=== PATIENT | male | born 1975 | race Caucasian/White ===

== ENCOUNTER 2019-11-27 19:51 | Inpatient (IN) | payer BC ==
[~2019-11-27] VITALS: Ht 190.5 cm; Wt 208.2 kg
[2019-11-27] MEDS ORDERED: ALBUTEROL SULF 0.083% NEB SOLN 3 ML NEB NEB STA (19:55)
[2019-11-27] MEDS ORDERED: ACETAMINOPHEN 1000 MG/100 ML IV STA (19:59)
[2019-11-27 20:34] LABS: BASOPHILS % 0.2 % (0.0-1.0); EOSINOPHILS # (AUTO) 0.1 (0.0-0.4); EOSINOPHILS % 0.3 % (0.0-6.0); HEMATOCRIT 41.6 % (38.2-49.6); HEMOGLOBIN 14.1 g/dL (14.0-18.0); LYMPHOCYTES # (AUTO) 1.3 (1.0-3.2); LYMPHOCYTES % 8.2 % (18.0-39.1); MEAN CORPUSCULAR HEMOGLOBIN 30.5 pg (28-32); MEAN CORPUSCULAR HGB CONC 33.9 g/dL (31-35); MONOCYTES # (AUTO) 0.9 (0.2-0.8); NEUTROPHILS # (AUTO) 12.8 (2.1-6.9); NEUTROPHILS % 84.6 % (38.7-80.0); PLATELET COUNT 231 x10e3/uL (140-360); RED BLOOD COUNT 4.62 x10e6/uL (4.3-5.7); RED CELL DISTRIBUTION WIDTH 15.8 % (11.7-14.4)
[2019-11-27] MEDS ORDERED: ONDANSETRON HCL INJ 2MG/ML 2ML 2 MG/ML VIAL IV STA (20:35)
[2019-11-27 20:41] LABS: INR 1.07; PROTHROMBIN TIME 14.2 seconds (11.9-14.5)
[2019-11-27] MEDS ORDERED: ACETAMINOPHEN 325 MG TAB PO ONE (20:45)
[2019-11-27] MEDS ORDERED: ACETAMINOPHEN 325 MG TAB ONE (20:46)
[2019-11-27] MEDS: PIPER-TAZ 3.375 GM 50 ML IV SCH (21:04)
[2019-11-27] MEDS ORDERED: VANCOMYCIN 1GM/NS 250 ML 250 ML IV STA (21:04)
[2019-11-27 21:19] LABS: ALANINE AMINOTRANSFERASE 29 IU/L (0-55); ALBUMIN 3.5 g/dL (3.5-5.0); ALBUMIN/GLOBULIN RATIO 1.2 (0.8-2.0); ALKALINE PHOSPHATASE 96 IU/L (40-150); ANION GAP 16.7 mmol/L (8-16); BLOOD UREA NITROGEN 19 mg/dL (7-26); BUN/CREATININE RATIO 17 (6-25); CALCIUM 8.7 mg/dL (8.4-10.2); CARBON DIOXIDE 22 mmol/L (22-29); CHLORIDE 103 mmol/L (98-107); CREATINE KINASE 86 IU/L (30-200); CREATININE, SERUM 1.13 mg/dL (0.72-1.25); EST GLOMERULAR FILTRATION RATE > 60 ML/MIN (60-); GLUCOSE 106 mg/dL (74-118); POTASSIUM 3.7 mmol/L (3.5-5.1); SODIUM 138 mmol/L (136-145)
--- NOTE | 2019-11-27 21:25 | Diagnostic Imaging Report ---
EXAMINATION: CHEST SINGLE (PORTABLE) COMPARISON: None INDICATION: Fever, cough, nausea vomiting ^ERMD ORDER ^[id number] ^2039 ^Y DISCUSSION: Frontal view of the chest obtained at 8 hours. HEART AND MEDIASTINUM: The cardiomediastinal silhouette is unremarkable. LINES: None. LUNGS: Airspace opacities in the right mid and lower lung zones. Left lung is clear. PLEURA: No pleural effusion or pneumothorax. BONES AND SOFT TISSUES: No focal osseous lesion. The soft tissues are normal. IMPRESSION: Airspace opacity in the right lung is suggestive of pneumonia. Signed by: Dr. Eileen Barreto MD on 11/27/2019 9:23 PM
--- OUTSIDE RECORDS SUMMARY | 2019-11-27 22:11 | XMS REPORT ---
Author [facility] Address Unknown Phone Unavailable Care Team Providers Care [employer] Inspector Name Role Phone ANGELICA HAILEY Unavailable Unavailable Problems This patient has no known problems. Allergies, Adverse Reactions, Alerts This patient has no known allergies or adverse reactions. Medications This patient has no known medications. Results Test Description Test Time Test Comments Text Results Atomic Results Result Comments CHEST SINGLE (PORTABLE) 2019-11-27 21:22:00 [place] [address] Patient Name: MARY CARRINGTON MR #: [id number] : 1975 Age/Sex: 44/M Req #: [id number] Adm Physician: Ordered by: HAILEY DOMINGUEZ DO Report #: [id number] Location: ER Room/Bed: Procedure: [id number] DX/CHEST SINGLE (PORTABLE) Exam Date: 11/27/19 Exam Time: 2039 REPORT STATUS: Signed EXAMINATION: CHEST SINGLE (PORTABLE) COMP ARISON: None INDICATION: Fever, cough, nausea vomiting ERMD ORDER [id number] Y DISCUSSION: Frontal view of the chest obtained at 2038 hours. HEART AND MEDIASTINUM: The cardiomediastinal silhouette is unremarkable. LINES: None. LUNGS: Airspace opacities in the right mid and lower lung zones. Left lung is clear. PLEURA: No pleural effusion or pneumothorax. BONES AND SOFT TISSUES: No focal osseous lesion. The soft tissues are normal. IMPRESSION: Airspace opacity in the right lung is suggestive of pneumonia. Signed by: Dr. Monica Barreto MD on 11/27/2019 9:23 PM Dictated By: MONICA BARRETO MD 22 Transcribed By: KEVIN on 11/27/192122 COPY TO: HAILEY DOMINGUEZ DO
[2019-11-27] MEDS ORDERED: VANCOMYCIN HCL 1GM/NS 250 ML BAG IV SCH (22:15)
[2019-11-27] MEDS ORDERED: AZITHROMYCIN 500MG/SOD CHL 0.9% 250ML BAG IV SCH (22:15)
[2019-11-27 23:14] VITALS: BP 137/78
[2019-11-27 23:47] VITALS: BP 137/78
[2019-11-28] VITALS (19 sets, daily range): BP systolic 126–160; BP diastolic 60–98
[2019-11-28 05:27] LABS: BASOPHILS % 0.2 % (0.0-1.0); EOSINOPHILS # (AUTO) 0.1 (0.0-0.4); EOSINOPHILS % 0.5 % (0.0-6.0); HEMATOCRIT 41.2 % (38.2-49.6); HEMOGLOBIN 13.5 g/dL (14.0-18.0); LYMPHOCYTES # (AUTO) 1.5 (1.0-3.2); LYMPHOCYTES % 9.1 % (18.0-39.1); MEAN CORPUSCULAR HGB CONC 32.8 g/dL (31-35); MEAN CORPUSCULAR VOLUME 91.6 fL (81-99); NEUTROPHILS # (AUTO) 13.6 (2.1-6.9); NEUTROPHILS % 81.7 % (38.7-80.0); PLATELET COUNT 207 x10e3/uL (140-360); RED CELL DISTRIBUTION WIDTH 15.8 % (11.7-14.4)
[2019-11-28 06:08] LABS: ANION GAP 16.7 mmol/L (8-16); BLOOD UREA NITROGEN 19 mg/dL (7-26); BUN/CREATININE RATIO 16 (6-25); CALCIUM 8.7 mg/dL (8.4-10.2); CARBON DIOXIDE 24 mmol/L (22-29); CHLORIDE 102 mmol/L (98-107); CREATININE, SERUM 1.21 mg/dL (0.72-1.25); EST GLOMERULAR FILTRATION RATE > 60 ML/MIN (60-); GLUCOSE 113 mg/dL (74-118); POTASSIUM 3.7 mmol/L (3.5-5.1); SODIUM 139 mmol/L (136-145)
[2019-11-28] MEDS ORDERED: ONDANSETRON HCL INJ 2MG/ML 2ML 2 MG/ML VIAL IV STA (06:12)
[2019-11-28] MEDS ORDERED: ACETAMINOPHEN 325 MG TAB PO ONE (06:15)
[2019-11-28 06:32] LABS: CREATINE KINASE 62 IU/L (30-200)
[2019-11-28] MEDS: PIPER-TAZ 3.375 GM 50 ML IV SCH ×4 (06:33→23:45)
[2019-11-28] MEDS ORDERED: PROMETHAZINE 12.5MG/ NACL 0.9% 12.5 MG/50 ML BAG IV PRN (07:45)
[2019-11-28] MEDS ORDERED: SODIUM CHLORIDE 0.9% 250ML 250 ML ONE (07:57)
[2019-11-28] MEDS: ACETAMIN/BUTALBITAL/CAFFEINE TAB PO PRN ×3 (08:00→23:45)
[2019-11-28] MEDS ORDERED: ZOLPIDEM TARTRATE 5 MG TAB PO PRN (10:30)
[2019-11-28] MEDS ORDERED: CLONIDINE HCL 0.1 MG TAB PO PRN (10:30)
[2019-11-28] MEDS ORDERED: AZITHROMYCIN 500MG/NS 250 ML 250 ML IV SCH (10:30)
[2019-11-28] MEDS ORDERED: ALBUTEROL/IPRATROPIUM 3 ML NEB NEB PRN (10:45)
[2019-11-28] MEDS: METHYLPREDNISOLONE SOD SUCC 40 MG/ML VIAL 1ML IV SCH ×2 (11:03→23:45)
[2019-11-28] MEDS: SODIUM CHLORIDE 0.9% 1000ML 1,000 ML IV SCH ×2 (11:03→19:45)
--- NOTE | 2019-11-28 11:27 | Consultation ---
DATE OF CONSULTATION: 11/28/2019 Pulmonary Critical Care Consultation. CHIEF COMPLAINT: Fever and worsening dyspnea. HISTORY OF PRESENT ILLNESS: The patient is a 44-year-old man. He has a history of obstructive sleep apnea and asthma. He was previously on Pulmicort and rescue inhalers several years ago, but has not required them for three or four years. Over the past five days, he has noticed increased fever and congestion. He complains of worsening dyspnea and some difficulty breathing. He has been using his BiPAP more. He reports some headache. PAST SURGICAL HISTORY: Status post umbilical hernia repair. PAST MEDICAL HISTORY: 1. Asthma. 2. COPD. 3. Hypertension. SOCIAL HISTORY: The patient is not a smoker. He is not an active drinker. He has no recent travel. FAMILY HISTORY: Family history is noncontributory. REVIEW OF SYSTEMS: The patient is afebrile, T-max is 99.9. The patient reports some headache. He does have some wheezing and some cough. He notes some dyspnea. He is not having any chest pain. He denies any abdominal pain. There is no nausea or vomiting. He has no leg edema. PHYSICAL EXAMINATION: VITAL SIGNS: The patient is afebrile. The blood pressure is 153/96 and the patient is on BiPAP. HEENT: Shows no facial swelling or erythema. LYMPHATIC: Shows no submandibular, cervical, or supraclavicular adenopathy. CARDIAC: Reveals regular rate and rhythm with normal S1, S2. LUNGS: Auscultation of lungs reveals a prolonged expiratory phase bilaterally. There is some wheezing. ABDOMEN: Soft and nontender. There is no rebound or guarding. EXTREMITIES: Show no leg edema or calf tenderness. There is no cyanosis or clubbing. SKIN: Shows no rashes. NEUROLOGICAL: Shows no focal abnormalities. LABORATORY DATA: White blood cell count is 16.7 and hemoglobin is 13.5. The platelet count is 207. BUN to creatinine ratio is 19 to 1.21. Influenza is negative. Chest x-ray shows airspace opacity in the right lung, suggestive of pneumonia. IMPRESSION: 1. Community-acquired pneumonia with sepsis, present on admission. 2. Asthma with acute exacerbation. 3. Obstructive sleep apnea. 4. Headache. 5. Hypertension. PLAN: 1. The patient will receive IV fluids. 2. Zithromax and Rocephin for community-acquired pneumonia. 3. Solu-Medrol twice daily. 4. Bronchodilators as needed. 5. CT scan of head and CT scan of chest. MD AILYN Blackman/JACKIE /[id number]
[2019-11-28] MEDS ORDERED: ACETAMINOPHEN 325 MG TAB PO PRN (12:00)
[2019-11-28] MEDS ORDERED: ONDANSETRON HCL INJ 2MG/ML 2ML 2 MG/ML VIAL IV PRN (12:00)
--- NOTE | 2019-11-28 12:22 | Diagnostic Imaging Report ---
EXAM: CT Chest WITHOUT contrast INDICATION: ^Headache ^[id number] ^1140 COMPARISON: None TECHNIQUE: Chest was scanned utilizing a multidetector helical scanner from the lung apex through the level of the adrenal glands without administration of IV contrast. Absence of intravenous contrast decreases sensitivity for detection of lymphadenopathy and vascular pathology. Coronal and sagittal reformations were obtained. Routine protocol was performed. IV CONTRAST: None COMPLICATIONS: None RADIATION DOSE: Total DLP: 979.32 mGy*cm Estimated effective dose: (DLP x 0.014 x size factor) mSv CTDIvol has been reviewed. It is below the limits set by the Radiation Protocol Committee (RPC). FINDINGS: LINES/ TUBES: None. LUNGS AND AIRWAYS: Diffuse consolidation is seen involving the right middle and right lower lobe which could be due to aspiration or pneumonia. Airways are normal. PLEURA: The pleural spaces are clear. HEART AND MEDIASTINUM: The thyroid gland is normal. No mediastinal, hilar or axillary lymphadenopathy. The heart is normal in size.. There is no pericardial effusion. UPPER ABDOMEN: Unremarkable. BONES: The visualized bony thorax is within normal limits. SOFT TISSUES: Unremarkable. IMPRESSION: Diffuse consolidation in the right middle and right lower lobe likely due to aspiration or pneumonia. Signed by: Guzman Fraga MD on 11/28/2019 12:20 PM
--- NOTE | 2019-11-28 12:42 | Diagnostic Imaging Report ---
CT BRAIN WO HISTORY: Headache COMPARISON: None. TECHNIQUE: Noncontrast axial scans were obtained from skull base to the vertex. Coronal and sagittal reconstructions obtained from the axial data. One or more of the following dose reduction techniques were used: Automated exposure control, adjustment of the mA and/or kV according to patient size, and/or utilization of iterative reconstruction technique. Beam hardening artifacts obscure some details. DISCUSSION: Scalp/Skull: Unremarkable. Brain sulci: Appropriate for patient's age. Ventricles: Normal in size and configuration. No hydrocephalus. Extra-axial spaces: No masses or fluid collections. Minimal carotid siphon calcifications. Parenchyma: No abnormal densities. No mass, hemorrhage, or large vascular territory acute infarct. Dural sinuses: No abnormal densities. Sellar/Suprasellar region: Intact. Skull base: Intact. Incidental findings: Scattered diffuse bilateral paranasal sinus opacification is nonspecific. IMPRESSION: 1. No acute intracranial abnormalities. 2. Nonspecific scattered diffuse bilateral paranasal sinus opacification. Signed by: Dr. Emmanuel Fisher M.D. on 11/28/2019 12:40 PM
[2019-11-28] MEDS: GUAIFENESIN 600 MG TAB PO SCH ×3 (12:58→23:45)
[2019-11-28] MEDS: ALBUTEROL/IPRATROPIUM 3 ML NEB NEB SCH ×2 (13:30→19:14)
[2019-11-28 15:47] LABS: CLARITY,URINE HAZY (CLEAR); COLOR,URINE YELLOW (YELLOW)
[2019-11-28 15:48] LABS: BACTERIA,URINE FEW /HPF; BILIRUBIN,URINE NEGATIVE (NEGATIVE); EPITHELIAL CELLS,URINE FEW /LPF; KETONES,URINE 1+ (NEGATIVE); LEUKOCYTE ESTERASE ,URINE NEGATIVE (NEGATIVE); NITRITE,URINE NEGATIVE (NEGATIVE); PROTEIN,URINE DIPSTICK 1+ (NEGATIVE); RBC,URINE 0-5 /HPF (0-5); URINE UROBILINOGEN 4 mg/dL (0.2 - 1); WBC,URINE (MAN) 0-5 /HPF (0-5)
[2019-11-28 16:14] LABS: BAND NEUTROPHILS % (MANUAL) 17 %; LYMPHOCYTES % (MANUAL) 5 % (19-48); MONOCYTES % (MANUAL) 6 % (3.4-9.0); NEUTROPHILS % (MANUAL) 72 % (40-74); PLATELET ESTIMATE ADEQUATE; PLATELET MORPHOLOGY COMMENT NORMAL; RBC MORPHOLOGY COMMENT NORMAL
[2019-11-28] MEDS ORDERED: AZITHROMYCIN 500MG/SOD CHL 0.9% 250ML BAG IV SCH (22:15)
[2019-11-28] MEDS: AZITHROMYCIN 500MG/SOD CHL 0.9% 250ML BAG IV SCH (22:16)
[2019-11-29] VITALS (15 sets, daily range): BP systolic 109–148; BP diastolic 72–97
[2019-11-29] MEDS: ALBUTEROL/IPRATROPIUM 3 ML NEB NEB SCH ×4 (01:10→19:01)
[2019-11-29 05:28] LABS: BASOPHILS % 0.1 % (0.0-1.0); HEMOGLOBIN 12.6 g/dL (14.0-18.0); LYMPHOCYTES # (AUTO) 1.2 (1.0-3.2); LYMPHOCYTES % 7.4 % (18.0-39.1); MEAN CORPUSCULAR HEMOGLOBIN 30.3 pg (28-32); MEAN CORPUSCULAR HGB CONC 33.2 g/dL (31-35); MEAN CORPUSCULAR VOLUME 91.3 fL (81-99); MONOCYTES # (AUTO) 0.3 (0.2-0.8); MONOCYTES % 1.7 % (4.4-11.3); NEUTROPHILS # (AUTO) 13.6 (2.1-6.9); PLATELET COUNT 239 x10e3/uL (140-360); RED BLOOD COUNT 4.16 x10e6/uL (4.3-5.7); RED CELL DISTRIBUTION WIDTH 15.2 % (11.7-14.4)
[2019-11-29 05:52] LABS: ALANINE AMINOTRANSFERASE 28 IU/L (0-55); ALBUMIN/GLOBULIN RATIO 0.9 (0.8-2.0); ALKALINE PHOSPHATASE 93 IU/L (40-150); ANION GAP 14.4 mmol/L (8-16); BLOOD UREA NITROGEN 17 mg/dL (7-26); BUN/CREATININE RATIO 17 (6-25); CALCIUM 9.3 mg/dL (8.4-10.2); CARBON DIOXIDE 25 mmol/L (22-29); CHLORIDE 103 mmol/L (98-107); CREATININE, SERUM 0.98 mg/dL (0.72-1.25); EST GLOMERULAR FILTRATION RATE > 60 ML/MIN (60-); GLUCOSE 162 mg/dL (74-118); POTASSIUM 4.4 mmol/L (3.5-5.1); SODIUM 138 mmol/L (136-145)
[2019-11-29] MEDS: GUAIFENESIN 600 MG TAB PO SCH ×3 (06:00→17:27)
[2019-11-29] MEDS: PIPER-TAZ 3.375 GM 50 ML IV SCH ×3 (06:00→17:26)
--- NOTE | 2019-11-29 06:16 | Diagnostic Imaging Report ---
EXAMINATION: CHEST SINGLE (PORTABLE) COMPARISON: CT chest 11/28/2019, chest x-ray 11/27/2019 INDICATION: Shortness of breath, fever, pneumonia ^PNA ^Y DISCUSSION: Frontal view of the chest obtained at 0542 hours. HEART AND MEDIASTINUM: The heart is top normal in size LINES: None. LUNGS: Infiltrates in the lateral segment of the right middle lobe and portions of the lower lobe are similar. Left lung is clear. PLEURA: No pleural effusion or pneumothorax. BONES AND SOFT TISSUES: No focal osseous lesion. The soft tissues are normal. IMPRESSION: No significant change in infiltrates in the right lung. No new cardiopulmonary findings. Signed by: Dr. Eileen Barreto MD on 11/29/2019 6:14 AM
[2019-11-29] MEDS: METHYLPREDNISOLONE SOD SUCC 40 MG/ML VIAL 1ML IV SCH ×2 (11:57→22:24)
--- NOTE | 2019-11-29 13:43 | Progress Note ---
DATE: 11/29/2019 Pulmonary Critical Care Consultation HISTORY OF PRESENT ILLNESS: The patient received some IV fluids antibiotics yesterday. He feels better overall, but still has some cough. He is using BiPAP intermittently. PHYSICAL EXAMINATION: VITAL SIGNS: The patient is afebrile. The blood pressure is 142/87. HEENT: Shows no facial swelling or erythema. CARDIAC: Reveals regular rate and rhythm with normal S1 and S2. LUNGS: Auscultation of lungs reveals rhonchorous breath sounds bilaterally. There is no wheezing. ABDOMEN: Soft and nontender. There is no rebound or guarding. EXTREMITIES: Shows no leg edema or calf tenderness. There is no cyanosis or clubbing. LABORATORY DATA: The BUN to creatinine ratio is 17 to 0.98 and other electrolytes are within normal limits. The white blood cell count is 15.5 and hemoglobin is 12.6. The platelet count is 239. RADIOGRAPHIC DATA: CT scan shows diffuse consolidation in the right middle and right lower lobe. CT of the brain shows sinusitis. IMPRESSION: 1. Community-acquired pneumonia with sepsis, present on admission. 2. Acute sinusitis. 3. Obstructive sleep apnea. 4. Asthma with acute exacerbation. 5. Hypertension. PLAN: 1. Continue antibiotics. 2. Nasal sprays for sinusitis. 3. BiPAP at night and as needed during the day. Rito Hussein MD [facility]/MODL /[id number]
[2019-11-29] MEDS: FLUTICASONE PROPIONATE NASAL SPRAY NS SCH (16:24)
[2019-11-29] MEDS: OXYMETAZOLINE HCL 0.05% NAS 1 SPRAY BTL SCH (20:57)
[2019-11-29] MEDS: AZITHROMYCIN 500MG/SOD CHL 0.9% 250ML BAG IV SCH (21:33)
[2019-11-30] VITALS (8 sets, daily range): BP systolic 138–154; BP diastolic 75–97
[2019-11-30] MEDS: PIPER-TAZ 3.375 GM 50 ML IV SCH ×5 (00:16→23:37)
[2019-11-30] MEDS: GUAIFENESIN 600 MG TAB PO SCH ×5 (00:16→23:37)
[2019-11-30] MEDS: ALBUTEROL/IPRATROPIUM 3 ML NEB NEB SCH ×4 (00:30→19:00)
[2019-11-30 05:45] LABS: HEMOGLOBIN 12.6 g/dL (14.0-18.0); RED BLOOD COUNT 4.17 x10e6/uL (4.3-5.7)
[2019-11-30 05:46] LABS: MEAN CORPUSCULAR HEMOGLOBIN 30.2 pg (28-32); MEAN CORPUSCULAR HGB CONC 33.2 g/dL (31-35); MEAN CORPUSCULAR VOLUME 91.1 fL (81-99)
[2019-11-30 05:47] LABS: PLATELET COUNT 243 x10e3/uL (140-360); RED CELL DISTRIBUTION WIDTH 15.5 % (11.7-14.4)
[2019-11-30 05:48] LABS: BASOPHILS % 0.2 % (0.0-1.0); EOSINOPHILS % 0.4 % (0.0-6.0); LYMPHOCYTES % 11.7 % (18.0-39.1); MONOCYTES % 2.8 % (4.4-11.3)
[2019-11-30 05:59] LABS: ANION GAP 13.5 mmol/L (8-16); BLOOD UREA NITROGEN 17 mg/dL (7-26); BUN/CREATININE RATIO 18 (6-25); CALCIUM 9.3 mg/dL (8.4-10.2); CARBON DIOXIDE 22 mmol/L (22-29); CHLORIDE 105 mmol/L (98-107); CREATININE, SERUM 0.95 mg/dL (0.72-1.25); EST GLOMERULAR FILTRATION RATE > 60 ML/MIN (60-); GLUCOSE 179 mg/dL (74-118); MAGNESIUM 2.1 MG/DL (1.3-2.1); POTASSIUM 4.5 mmol/L (3.5-5.1); SODIUM 136 mmol/L (136-145)
[2019-11-30] MEDS: FLUTICASONE PROPIONATE NASAL SPRAY NS SCH ×2 (08:23→16:29)
[2019-11-30] MEDS: OXYMETAZOLINE HCL 0.05% NAS 1 SPRAY BTL SCH ×2 (08:23→20:18)
[2019-11-30 09:37] LABS: EOSINOPHILS # (AUTO) 0.1 (0.0-0.4); LYMPHOCYTES # (AUTO) 1.8 (1.0-3.2); MONOCYTES # (AUTO) 0.4 (0.2-0.8); NEUTROPHILS # (AUTO) 12.9 (2.1-6.9)
[2019-11-30] MEDS: METHYLPREDNISOLONE SOD SUCC 40 MG/ML VIAL 1ML IV SCH (11:00)
[2019-11-30 11:46] LABS: PLATELET MORPHOLOGY COMMENT FEW LARGE
--- NOTE | 2019-11-30 15:53 | Progress Note ---
DATE: 11/30/2019 Pulmonary Critical Care Progress Note SUBJECTIVE: The patient feels better. He is not having fevers. He has less cough. PHYSICAL EXAMINATION: VITAL SIGNS: The patient is afebrile. The blood pressure is 138/87. HEENT: Shows no facial swelling or erythema. CARDIAC: Reveals regular rate and rhythm with normal S1 and S2. LUNGS: Auscultation of lungs reveals clear breath sounds bilaterally. There is no wheezing. ABDOMEN: Soft and nontender. There is no rebound or guarding. EXTREMITIES: Shows no leg edema or calf tenderness. There is no cyanosis or clubbing. SKIN: Shows no rashes. NEUROLOGICAL: Shows no focal abnormalities. IMPRESSION: 1. Community-acquired pneumonia. 2. Acute sinusitis. 3. Obstructive sleep apnea. 4. Asthma. 5. Hypertension. PLAN: 1. Discontinue Solu-Medrol. 2. Continue bronchodilators. 3. Continue IV antibiotics for now. Hopefully, the patient can be switched to oral antibiotics tomorrow. 4. Continue BiPAP at night. MD AILYN Blackman/ADEL /[id number]
[2019-11-30] MEDS: FAMOTIDINE 20 MG TAB PO SCH (16:29)
[2019-11-30] MEDS: AZITHROMYCIN 500MG/SOD CHL 0.9% 250ML BAG IV SCH (22:39)
[2019-12-01] MEDS: ALBUTEROL/IPRATROPIUM 3 ML NEB NEB SCH ×4 (01:20→20:33)
[2019-12-01 04:50] VITALS: BP 146/84
[2019-12-01 05:25] LABS: BASOPHILS % 0.2 % (0.0-1.0); EOSINOPHILS # (AUTO) 0.1 (0.0-0.4); EOSINOPHILS % 0.5 % (0.0-6.0); HEMATOCRIT 40.4 % (38.2-49.6); HEMOGLOBIN 13.4 g/dL (14.0-18.0); LYMPHOCYTES # (AUTO) 3.8 (1.0-3.2); MEAN CORPUSCULAR HEMOGLOBIN 30.2 pg (28-32); MEAN CORPUSCULAR HGB CONC 33.2 g/dL (31-35); MONOCYTES # (AUTO) 0.7 (0.2-0.8); NEUTROPHILS # (AUTO) 8.2 (2.1-6.9); NEUTROPHILS % 63.4 % (38.7-80.0); PLATELET COUNT 264 x10e3/uL (140-360); RED BLOOD COUNT 4.44 x10e6/uL (4.3-5.7); RED CELL DISTRIBUTION WIDTH 15.5 % (11.7-14.4)
[2019-12-01 05:37] LABS: ANION GAP 13.5 mmol/L (8-16); BLOOD UREA NITROGEN 19 mg/dL (7-26); BUN/CREATININE RATIO 17 (6-25); CALCIUM 9.2 mg/dL (8.4-10.2); CARBON DIOXIDE 24 mmol/L (22-29); CHLORIDE 106 mmol/L (98-107); CREATININE, SERUM 1.15 mg/dL (0.72-1.25); EST GLOMERULAR FILTRATION RATE > 60 ML/MIN (60-); GLUCOSE 120 mg/dL (74-118); POTASSIUM 3.5 mmol/L (3.5-5.1); SODIUM 140 mmol/L (136-145)
[2019-12-01] MEDS: ACETAMIN/BUTALBITAL/CAFFEINE TAB PO PRN (06:07)
[2019-12-01] MEDS: PIPER-TAZ 3.375 GM 50 ML IV SCH ×3 (06:07→20:29)
[2019-12-01] MEDS: GUAIFENESIN 600 MG TAB PO SCH ×4 (06:07→23:50)
[2019-12-01] MEDS: FAMOTIDINE 20 MG TAB PO SCH ×2 (08:30→20:25)
[2019-12-01] MEDS: OXYMETAZOLINE HCL 0.05% NAS 1 SPRAY BTL SCH ×2 (09:46→21:00)
[2019-12-01] MEDS: FLUTICASONE PROPIONATE NASAL SPRAY NS SCH ×2 (09:46→20:22)
[2019-12-01] MEDS: LORATADINE/PSEUDOEPHEDRINE 24 HR SR TAB PO SCH (09:46)
[2019-12-01 09:56] VITALS: BP 160/92
[2019-12-01 10:00] VITALS: BP 160/92
--- NOTE | 2019-12-01 16:10 | Progress Note ---
DATE: 12/01/2019 SUBJECTIVE: The patient reports some increased sinus congestion. He has some mild dyspnea and dry cough. PHYSICAL EXAMINATION: VITAL SIGNS: The patient is afebrile. The vital signs are stable. HEENT: Shows no facial swelling or erythema. CARDIAC: Reveals regular rate and rhythm with normal S1 and S2. There are no murmurs or rubs. LUNGS: Auscultation of lungs reveals clear breath sounds bilaterally. There is no wheezing. ABDOMEN: Soft and nontender. There is no rebound or guarding. EXTREMITIES: Shows no leg edema or calf tenderness. There is no cyanosis or clubbing. IMPRESSION: 1. Community-acquired pneumonia. 2. Acute sinusitis. 3. Obstructive sleep apnea. 4. Asthma. 5. Hypertension. PLAN: 1. Continue antibiotics. Possible change to oral antibiotics tomorrow. Possible discharge home tomorrow. 2. Continue bronchodilators. 3. Continue BiPAP at night. 4. Case discussed with the patient and Anna Quintero, nurse practitioner. Rito Hussein MD [facility]/MODL /[id number]
--- NOTE | 2019-12-01 16:24 | Diagnostic Imaging Report ---
Chest, 2 views, 12/01/2019. History: Pneumonia. Comparison: 11/29/2019. Findings: The cardiomediastinal silhouette and pulmonary vasculature are within normal limits. Right middle lobe lateral segment and right lower lobe posterior consolidation are present, decreased in density. There are no acute osseous or soft tissue abnormalities. Impression: Slight improvement in right sided pneumonia. Signed by: Travis Beckett on 12/01/2019 4:21 PM
[2019-12-01 17:51] VITALS: BP 157/93
[2019-12-01 20:00] VITALS: BP 138/87
[2019-12-01 21:00] VITALS: BP 138/87
[2019-12-01] MEDS ORDERED: SODIUM CHLORIDE 0.9% 250ML 250 ML ONE (22:06)
[2019-12-01] MEDS: AZITHROMYCIN 500MG/SOD CHL 0.9% 250ML BAG IV SCH (22:15)
[2019-12-02] VITALS (8 sets, daily range): BP systolic 136–182; BP diastolic 69–104
[2019-12-02] MEDS: PIPER-TAZ 3.375 GM 50 ML IV SCH ×4 (01:45→20:30)
[2019-12-02] MEDS: ALBUTEROL/IPRATROPIUM 3 ML NEB NEB SCH ×4 (01:47→19:47)
[2019-12-02] MEDS: HYDRALAZINE HCL 20 MG/ML VIAL IV PRN (05:18)
[2019-12-02] MEDS: GUAIFENESIN 600 MG TAB PO SCH ×2 (05:20→06:36)
[2019-12-02 05:59] LABS: BASOPHILS % 0.4 % (0.0-1.0); EOSINOPHILS # (AUTO) 0.3 (0.0-0.4); EOSINOPHILS % 3.1 % (0.0-6.0); HEMOGLOBIN 13.3 g/dL (14.0-18.0); LYMPHOCYTES # (AUTO) 3.1 (1.0-3.2); LYMPHOCYTES % 31.4 % (18.0-39.1); MEAN CORPUSCULAR HEMOGLOBIN 29.8 pg (28-32); MEAN CORPUSCULAR HGB CONC 32.4 g/dL (31-35); MEAN CORPUSCULAR VOLUME 91.9 fL (81-99); MONOCYTES # (AUTO) 0.5 (0.2-0.8); MONOCYTES % 4.8 % (4.4-11.3); NEUTROPHILS # (AUTO) 5.6 (2.1-6.9); NEUTROPHILS % 57.2 % (38.7-80.0); PLATELET COUNT 238 x10e3/uL (140-360); RED BLOOD COUNT 4.46 x10e6/uL (4.3-5.7); RED CELL DISTRIBUTION WIDTH 15.2 % (11.7-14.4)
[2019-12-02 06:21] LABS: ANION GAP 13.8 mmol/L (8-16); BLOOD UREA NITROGEN 20 mg/dL (7-26); BUN/CREATININE RATIO 17 (6-25); CALCIUM 8.3 mg/dL (8.4-10.2); CARBON DIOXIDE 24 mmol/L (22-29); CHLORIDE 105 mmol/L (98-107); CREATININE, SERUM 1.18 mg/dL (0.72-1.25); EST GLOMERULAR FILTRATION RATE > 60 ML/MIN (60-); GLUCOSE 89 mg/dL (74-118); POTASSIUM 3.8 mmol/L (3.5-5.1); SODIUM 139 mmol/L (136-145)
[2019-12-02] MEDS: FAMOTIDINE 20 MG TAB PO SCH ×2 (06:34→18:09)
[2019-12-02] MEDS ORDERED: BENZONATATE 100 MG CAP PO PRN (07:15)
[2019-12-02] MEDS: LORATADINE/PSEUDOEPHEDRINE 24 HR SR TAB PO SCH (07:38)
[2019-12-02] MEDS: OXYMETAZOLINE HCL 0.05% NAS 1 SPRAY BTL SCH (07:57)
[2019-12-02] MEDS: FLUTICASONE PROPIONATE NASAL SPRAY NS SCH ×2 (07:57→17:00)
[2019-12-02] MEDS: ACETAMIN/BUTALBITAL/CAFFEINE TAB PO PRN (07:57)
[2019-12-02] MEDS: AMLODIPINE BESYLATE 10 MG TAB PO SCH (09:02)
[2019-12-02] MEDS: GUAIFENESIN 600MG/DEXTROMETHORPHAN 30MG TABSR PO SCH ×2 (09:02→20:30)
[2019-12-02] MEDS: METHYLPREDNISOLONE SOD SUCC 40 MG/ML VIAL 1ML IV SCH ×2 (09:02→20:30)
[2019-12-02] MEDS ORDERED: ONDANSETRON HCL 4 MG ORAL DISINTEGRATING TAB PO PRN (09:45)
[2019-12-02] MEDS: CIPROFLOXACIN-DEXAMETHASONE (OTIC) 7.5 ML BOTTLE OT SCH ×3 (10:00→20:30)
[2019-12-02] MEDS: SALINE 0.65% NAS SOLN 1 SPRAY BTL SCH ×5 (10:00→22:00)
--- NOTE | 2019-12-02 14:09 | Consultation ---
DATE OF CONSULTATION: 12/02/2019 Hospital Consultation HISTORY OF PRESENT ILLNESS: I was kindly asked to see this 44-year-old man for evaluation of sinusitis. The patient was admitted with respiratory distress, asthma, and pneumonia. He reports that since admission, he has had left-sided ear pain radiating across the top of his head and anterior facial pain and pressure. He has been treated with Claritin-D and Afrin nasal spray as well as Flonase without significant improvement. He has a sensation of left-sided ear fullness. His History of Present Illness was reviewed in detail in the chart. PAST MEDICAL HISTORY: Reviewed in detail in the chart. PAST SURGICAL HISTORY: Reviewed in detail in the chart. PHYSICAL EXAMINATION: On examination, the right pinna, right external auditory canal, and right tympanic membrane were all normal. There was no right-sided postauricular pain, swelling, or tenderness. The left pinna was normal. The left external auditory canal was moderately erythematous and edematous. There was no exudate. The visualized portion of the tympanic membrane was not erythematous, but was hypomobile. There was no postauricular pain, swelling, or tenderness on the left side. Intranasal examination showed mild mucosal edema. There was vasodilation of the left anterior nasal septum and a small amount of fresh blood in the left nasal cavity. There was no mucopurulent debris identified. Oral cavity examination was noncontributory. Pharyngeal examination showed an elongated soft palate and uvula with redundant folds of mucosa consistent with his diagnosis of obstructive sleep apnea. There was minimal postnasal drainage. He had no palpable cervical adenopathy. ASSESSMENT: 1. Left otitis externa. 2. Otalgia. 3. Chronic rhinosinusitis. 4. Epistaxis. 5. Obstructive sleep apnea. PLAN: 1. Ciprodex to left ear b.i.d. 2. [place] nasal spray two puffs each side of nose q.4 hours while awake. 3. Continuation of current medical therapy. Thank you very much for this consultation. MD RAY Donohue/MODL /[id number]
--- NOTE | 2019-12-02 16:25 | Progress Note ---
DATE: 12/02/2019 SUBJECTIVE: The patient had some difficulty breathing this morning and required additional Solu-Medrol. The patient also has some cough. He feels better after receiving the steroids. The patient was seen by ENT. PHYSICAL EXAMINATION: VITAL SIGNS: Stable. HEENT: Shows no facial swelling or erythema. CARDIAC: Reveals regular rate and rhythm with normal S1 and S2. LUNGS: Auscultation of lungs reveals clear breath sounds bilaterally. ABDOMEN: Soft and nontender. There is no rebound or guarding. EXTREMITIES: Shows no leg edema or calf tenderness. There is no cyanosis or clubbing. SKIN: Shows no rashes. NEUROLOGICAL: Shows no focal abnormalities. IMPRESSION: 1. Community-acquired pneumonia. 2. Asthma with acute exacerbation. 3. Sinusitis with serous otitis. 4. Hypertension. 5. Obstructive sleep apnea. PLAN: 1. The patient can be discharged home tomorrow on oral antibiotics. 2. Continue nasal sprays. 3. Continue CPAP at night. Rito Hussein MD [facility]/ADEL /[id number]
[2019-12-02] MEDS: AZITHROMYCIN 500MG/SOD CHL 0.9% 250ML BAG IV SCH (22:15)
[2019-12-03] VITALS: BP 168/91
[2019-12-03 00:30] VITALS: BP 174/94
[2019-12-03] MEDS: HYDRALAZINE HCL 20 MG/ML VIAL IV PRN (00:35)
[2019-12-03] MEDS: ALBUTEROL/IPRATROPIUM 3 ML NEB NEB SCH ×2 (01:44→07:40)
[2019-12-03] MEDS: PIPER-TAZ 3.375 GM 50 ML IV SCH ×2 (01:51→09:00)
[2019-12-03 03:32] LABS: BASOPHILS % 0.3 % (0.0-1.0); EOSINOPHILS # (AUTO) 0.1 (0.0-0.4); EOSINOPHILS % 0.7 % (0.0-6.0); HEMATOCRIT 43.9 % (38.2-49.6); HEMOGLOBIN 14.6 g/dL (14.0-18.0); LYMPHOCYTES % 13.7 % (18.0-39.1); MEAN CORPUSCULAR HEMOGLOBIN 29.9 pg (28-32); MEAN CORPUSCULAR HGB CONC 33.3 g/dL (31-35); MONOCYTES # (AUTO) 0.5 (0.2-0.8); MONOCYTES % 3.5 % (4.4-11.3); NEUTROPHILS # (AUTO) 11.6 (2.1-6.9); PLATELET COUNT 310 x10e3/uL (140-360); RED BLOOD COUNT 4.88 x10e6/uL (4.3-5.7); RED CELL DISTRIBUTION WIDTH 14.7 % (11.7-14.4)
[2019-12-03 03:48] LABS: ANION GAP 16.6 mmol/L (8-16); BLOOD UREA NITROGEN 17 mg/dL (7-26); BUN/CREATININE RATIO 16 (6-25); CARBON DIOXIDE 22 mmol/L (22-29); CHLORIDE 103 mmol/L (98-107); CREATININE, SERUM 1.06 mg/dL (0.72-1.25); EST GLOMERULAR FILTRATION RATE > 60 ML/MIN (60-); GLUCOSE 141 mg/dL (74-118); SODIUM 137 mmol/L (136-145)
[2019-12-03 03:49] LABS: POTASSIUM 4.6 mmol/L (3.5-5.1)
[2019-12-03 03:56] LABS: CALCIUM 8.7 mg/dL (8.4-10.2)
[2019-12-03 04:00] VITALS: BP 141/62
[2019-12-03] MEDS: SALINE 0.65% NAS SOLN 1 SPRAY BTL SCH ×2 (06:29→09:00)
[2019-12-03] MEDS: FAMOTIDINE 20 MG TAB PO SCH (06:34)
[2019-12-03] MEDS ORDERED: CIPRODEX OTIC7.5 ML OT (06:42)
[2019-12-03] MEDS ORDERED: OCEAN104 ML (06:42)
[2019-12-03] MEDS ORDERED: PREDNISONE10 MG PO (06:42)
[2019-12-03] MEDS ORDERED: CEFDINIR300 MG PO (06:42)
[2019-12-03] MEDS ORDERED: NORVASC10 MG PO (06:42)
[2019-12-03 07:57] VITALS: BP 147/82
[2019-12-03 08:00] VITALS: BP 147/82
[2019-12-03] MEDS: GUAIFENESIN 600MG/DEXTROMETHORPHAN 30MG TABSR PO SCH (09:00)
[2019-12-03] MEDS: AMLODIPINE BESYLATE 10 MG TAB PO SCH (09:00)
[2019-12-03] MEDS: LORATADINE/PSEUDOEPHEDRINE 24 HR SR TAB PO SCH (09:00)
[2019-12-03] MEDS: METHYLPREDNISOLONE SOD SUCC 40 MG/ML VIAL 1ML IV SCH (09:00)
[2019-12-03] MEDS: CIPROFLOXACIN-DEXAMETHASONE (OTIC) 7.5 ML BOTTLE OT SCH (09:00)
[2019-12-03] MEDS: FLUTICASONE PROPIONATE NASAL SPRAY NS SCH (09:00)
[2019-12-03 12:04] VITALS: BP 154/72
--- NOTE | 2019-12-04 03:32 | Discharge Summary ---
ADMISSION DIAGNOSES: Acute respiratory distress secondary to community-acquired pneumonia and asthma exacerbation, present on admission; community-acquired pneumonia, present on admission; acute exacerbation of asthma; obstructive sleep apnea; super morbid obesity. DISCHARGE DIAGNOSES: Acute respiratory distress secondary to community-acquired pneumonia and asthma exacerbation, present on admission; community-acquired pneumonia, present on admission; acute exacerbation of asthma; obstructive sleep apnea; super morbid obesity; left otitis externa; chronic rhinosinusitis. HISTORY: Asthma, obstructive sleep apnea, hypertension, GERD, bilateral lower extremity lymphedema. SURGICAL HISTORY: Abdominal hernia repair x1. FAMILY HISTORY: The patient's mother had cancer. SOCIAL HISTORY: Noncontributory. HOSPITAL COURSE: A 44-year-old male admits with complaints of shortness of breath since Friday and began having a cough on Friday. He was sent home from work early and continued to worsen. On Friday, he had a fever of 102.6. He uses BiPAP of 19/23 at bedtime at baseline. On admission, chest x-ray showed airspace opacity in the right lung suggestive of pneumonia. CT of the chest showed diffuse consolidation in the right middle and right lower lobe, likely due to aspiration or pneumonia. Flu came back negative. The patient was put on BiPAP and Pulmonology was consulted. The patient started on Zithromax, Rocephin, Mucinex, and nebs. Due to headache, CT of the brain was done, which was negative. Followup chest x-ray showed slight improvement in the right-sided pneumonia. The patient was initially placed on steroids for asthma exacerbation, but worsened once the steroids were weaned off. He also complains of left-sided ear pain and face pain, so ENT was consulted who diagnosed the patient with left otitis externa. The patient was started on Ciprodex drops and [place] nasal spray per ENT recommendation. The patient will discharge home with new prescriptions for Norvasc, Omnicef, Cipro drops, prednisone, and Hartley Hilbert. The patient will follow up with primary care in 1 to 2 weeks and Pulmonology as discussed. The patient understands discharge instructions and agrees to plan. Dictated by Anna Quintero NP Jonathan Paul MD [facility]/MODL /[id number]
== END 2019-12-03 12:33 | disposition home or self-care (01) | DRG 871 ==
LOC: ER 19:51 → ERHOLD 22:06 → ICU 23:04 → MED/SURG3 12-01 17:36
PROVIDERS: ADMIT Internal Medicine; ATTEND Internal Medicine
PROC: 5A09457 Assistance with Respiratory Ventilation, 24-96 Consecutive Hours, Continuous Positive Airway Pressure (ICD-10-PCS; principal; 2019-11-27)
DX: A41.9 Sepsis, unspecified organism (principal); J18.1 Lobar pneumonia, unspecified organism; Z68.43 Body mass index [BMI] 50.0-59.9, adult; J45.901 Unspecified asthma with (acute) exacerbation; G47.33 Obstructive sleep apnea (adult) (pediatric); I10 Essential (primary) hypertension; R06.03 Acute respiratory distress; I89.0 Lymphedema, not elsewhere classified; J01.90 Acute sinusitis, unspecified; K21.9 Gastro-esophageal reflux disease without esophagitis; E66.01 Morbid (severe) obesity due to excess calories; H65.92 Unspecified nonsuppurative otitis media, left ear
CPT/HCPCS: 36415; 70450; 71045; 71046; 71250; 80048; 80053; 81001; 82550; 82553; 83605; 83735; 83880; 84484; 85025; 85610; 87040; 87070; 87205; 87400; 93005; 94640; 94660; 96360; 99284; J0360; J0456; J2405; J2543; J2550; J2920; J3370; J7030; J7050

== ENCOUNTER → 2021-05-24 | Outpatient (CLI) | payer OTHER ==
[~2021-05-24] MED LIST: CEFDINIR300 MG PO; CIPRODEX OTIC7.5 ML OT; NORVASC10 MG PO; OCEAN104 ML; PREDNISONE10 MG PO
== END ==
LOC: RAD 11:30
PROVIDERS: ATTEND Internal Medicine
DX: M54.6 Pain in thoracic spine (principal)
CPT/HCPCS: 72072

== ENCOUNTER → 2021-06-04 | Emergency (ER) | payer OTHER | END | disposition left against medical advice (07) | LOC: ER 17:42 | DX: R69 Illness, unspecified (principal) ==